=== PATIENT | male | born 1960 | race Caucasian/White ===

== ENCOUNTER 2021-01-21 18:20 | Outpatient (CLI) | payer MEDICARE | END 2021-01-21 18:21 | disposition critical access hospital (66) | LOC: EMS 18:20 | DX: S91.311A Laceration without foreign body, right foot, initial encounter (principal); M25.511 Pain in right shoulder; R07.89 Other chest pain; M25.571 Pain in right ankle and joints of right foot; V23.4XXA Motorcycle driver injured in collision with car, pick-up truck or van in traffic accident, initial encounter; Y93.55 Activity, bike riding; Y92.413 State road as the place of occurrence of the external cause | CPT/HCPCS: A0425; A0429 ==

== ENCOUNTER 2021-01-21 18:26 | Emergency (ER) | payer MEDICARE ==
[2021-01-21] MEDS ORDERED: LORazepam 2 MG/ML VIAL IVP STA (18:32)
[2021-01-21] MEDS ORDERED: TETANUS/DIPHTHERIA/PERTUSSIS 0.5 ML SYRINGE IM ONE (18:35)
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
[2021-01-21] MEDS ORDERED: MIDAZOLAM 2 MG/2 ML VIAL IVP STA (18:51)
[2021-01-21] MEDS ORDERED: IOVERSOL 320 100 ML VIAL IVP ONE ×2 (19:05→19:47)
--- NOTE | 2021-01-21 19:30 | XRAY Report ---
PROCEDURE: Ankle 3 View RT INDICATIONS: ankle/foot inj TECHNIQUE: 3 views of the ankle were acquired. COMPARISON: None. FINDINGS: Bones: No definite acute fracture although indeterminate 2 mm osseous fragment projects along the ant erior dorsal talus. Incidentally noted os peroneum. Soft tissues: Mild soft tissue swelling at the dorsal hindfoot. IMPRESSION: No definite fracture. Indeterminate osseous fragment projecting at the anterior dorsal talus, possibl y fracture fragment although the exact donor site would be unknown. Please correlate clinically to po int tenderness. If the patient's pain or other symptoms persist, consider further evaluation with MRI . Reviewed by: Smith Hyatt MD on 01/21/2021 7:29 PM PDT Approved by: Smith Hyatt MD on 01/21/2021 7:29 PM PDT Station ID: [id number]
--- NOTE | 2021-01-21 19:32 | XRAY Report ---
PROCEDURE: Chest 1 View X-Ray INDICATIONS: chest injury TECHNIQUE: One view of the chest was acquired. COMPARISON: None. FINDINGS: Surgical changes and devices: None. Lungs and pleura: No pleural effusions or pneumothorax. Lungs are clear. Mediastinum: Mediastinal contours appear normal. Heart size is normal. Bones and chest wall: Right mid clavicle fracture. There is overriding appearance and inferior displa cement of the lateral fragment measuring approximately one shaft width. IMPRESSION: Right mid clavicle fracture No acute cardiopulmonary abnormality. Reviewed by: Smith Hyatt MD on 01/21/2021 7:31 PM PDT Approved by: Smith Hyatt MD on 01/21/2021 7:31 PM PDT Station ID: [id number]
--- NOTE | 2021-01-21 19:35 | XRAY Report ---
PROCEDURE: Foot 3 View RT INDICATIONS: ankle/foot inj TECHNIQUE: 3 views of the foot were acquired. COMPARISON: None. FINDINGS: Comminuted fracture of the third metatarsal head. Great toe interphalangeal and first MTP osteoarthri tis. Scattered subchondral sclerosis and spurring. 2 mm fragment dorsal to the talus, although the e xact donor site is not well seen. There is adjacent soft tissue swelling. IMPRESSION: Fracture of the third metatarsal head. Possible fracture fragment versus dystrophic and obscuration projects adjacent to the talus. Recommen d correlation of point tenderness. Reviewed by: Smith Hyatt MD on 01/21/2021 7:34 PM PDT Approved by: Smith yHatt MD on 01/21/2021 7:34 PM PDT Station ID: [id number]
--- NOTE | 2021-01-21 19:38 | XRAY Report ---
PROCEDURE: Shoulder 3 View RT INDICATIONS: shoulder inj TECHNIQUE: 3 views of the shoulder were acquired. COMPARISON: None. FINDINGS: Bones: No fractures or dislocations. No suspicious bony lesions. Visualized ribs appear intact. Ac romioclavicular and glenohumeral osteoarthritis. Soft tissues: No suspicious soft tissue calcifications. IMPRESSION: Right shoulder osteoarthritis. If the patient's pain or other symptoms persist, consider further eval uation with MRI. Reviewed by: Smith Hyatt MD on 01/21/2021 7:37 PM PDT Approved by: Smith Hyatt MD on 01/21/2021 7:37 PM PDT Station ID: [id number]
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
[2021-01-21 19:44] LABS: BASOPHILS % (AUTO) 0.3 %; EOSINOPHILS % (AUTO) 0.2 %; HCT - HEMATOCRIT 42.9 % (42.0-52.0); HGB - HEMOGLOBIN 13.9 g/dL (14.0-18.0); LYMPHOCYTES % (AUTO) 5.7 %; MEAN CORPUSCULAR HEMOGLOBIN 28.6 pg (27.0-31.0); MEAN CORPUSCULAR HGB CONC 32.4 g/dL (32.0-36.0); MEAN CORPUSCULAR VOLUME 88.3 fL (80.0-94.0); MEAN PLATELET VOLUME 9.9 fL (7.4-11.4); MONOCYTES % (AUTO) 5.7 %; NEUTROPHILS % (AUTO) 87.6 %; PLT - PLATELET COUNT 300 10^3/uL (130-450); RED BLOOD COUNT 4.86 10^6/uL (4.70-6.10); RED CELL DISTRIBUTION WIDTH 12.9 % (12.0-15.0); WHITE BLOOD COUNT 24.7 x10^3/uL (4.8-10.8)
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
[2021-01-21 19:48] LABS: ABNORMAL LYMPHS % (MANUAL) 0 %
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
[2021-01-21 19:53] LABS: INR 1.3 (0.8-1.2); PT - PROTHROMBIN TIME 14.3 secs (9.9-12.6)
[2021-01-21 19:54] LABS: ALBUMIN 3.7 g/dL (3.2-5.5); ALBUMIN/GLOBULIN RATIO 1.3 (1.0-2.2); ALKALINE PHOSPHATASE 50 IU/L (42-121); ALT ALANINE AMINOTRANSFERASE 19 IU/L (10-60); AST ASPARTATE AMINOTRANSFERASE 23 IU/L (10-42); BILIRUBIN,TOTAL 0.5 mg/dL (0.2-1.0); BUN - BLOOD UREA NITROGEN 17 mg/dL (6-20); CARBON DIOXIDE - CO2 29 mmol/L (21-32); CHLORIDE 99 mmol/L (101-111); CREATININE 1.2 mg/dL (0.6-1.2); ETOH - ETHANOL < 5.0 mg/dL; GFR - MDRD 62 (>89); GLUCOSE 105 mg/dL (70-100); LIPASE 27 U/L (22-51); POTASSIUM 3.6 mmol/L (3.5-5.0); SODIUM 137 mmol/L (135-145); TOTAL PROTEIN 6.6 g/dL (6.7-8.2)
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
[2021-01-21 20:06] LABS: BAND NEUTROPHILS % (MANUAL) 1 %; BASOPHILS # (MANUAL) 0.5 10^3/uL (0-0.1); BASOPHILS % (MANUAL) 2 %; DIFFERENTIAL COMMENT MANUAL DIFFERENTIAL; EOSINOPHILS # (MANUAL) 0.2 10^3/uL (0-0.7); LYMPHOCYTES # (MANUAL) 0.7 10^3/uL (1.5-3.5); LYMPHOCYTES % (MANUAL) 3 %; MONOCYTES # (MANUAL) 1.5 10^3/uL (0.0-1.0); NEUTROPHILS # (MANUAL) 21.7 10^3/uL (1.5-6.6); PLATELET ESTIMATE, MANUAL NORMAL (130-450,000) (NORMAL); PLATELET MORPHOLOGY NORMAL APPEARANCE (NORMAL); RBC MORPHOLOGY (MULTIPLE) NORMAL APPEARANCE (NORMAL); WBC MORPHOLOGY (MULTIPLE) NORMAL APPEARANCE (NORMAL)
[2021-01-21] MEDS ORDERED: HYDROcod/ACET 5/325 Prepack 4 PO STA (20:36)
--- NOTE | 2021-01-21 20:59 | XRAY Report ---
PROCEDURE: Hand 3 View LT INDICATIONS: hand injury TECHNIQUE: 3 views of the hand(s) acquired. COMPARISON: None FINDINGS: Bones: No fractures or dislocations. No suspicious bony lesions. Scattered subchondral sclerosis a nd spurring. Chronic appearing possible small loose body seen projecting in the region of the first CMC joint, technically nonspecific. Additional osseous density projects in the base of the index fing er proximal phalanx however similar lateral view only Soft tissues: No suspicious soft tissue calcifications. IMPRESSION: Few nonspecific sub-5 mm osseous fragments which could be chronic versus small cortical avulsions. Pl ease correlate to point tenderness. Elsewhere, no definite fracture however follow-up radiographs in 10 days could be performed if the patient's symptoms do not improve to exclude occult fracture/assess for healing sclerosis. Reviewed by: Smith Hyatt MD on 01/21/2021 8:58 PM PDT Approved by: Smith Hyatt MD on 01/21/2021 8:58 PM PDT Station ID: [id number]
[2021-01-21 21:25] VITALS: BP 168/100
== END 2021-01-21 22:07 | disposition home or self-care (01) ==
LOC: ED 18:26
DX: S42.021A Displaced fracture of shaft of right clavicle, initial encounter for closed fracture (principal); S92.331A Displaced fracture of third metatarsal bone, right foot, initial encounter for closed fracture; S60.222A Contusion of left hand, initial encounter; S20.211A Contusion of right front wall of thorax, initial encounter; V27.4XXA Motorcycle driver injured in collision with fixed or stationary object in traffic accident, initial encounter; Y92.410 Unspecified street and highway as the place of occurrence of the external cause; F41.9 Anxiety disorder, unspecified; Z23 Encounter for immunization
CPT/HCPCS: 36415; 70450; 71045; 71260; 72125; 73030; 73130; 73610; 73630; 74177; 80053; 83690; 85025; 85610; 85730; 86850; 86900; 86901; 90471; 90715; 96374; 96375; 99281; 99284; G0480; J2060; Q9967; 80320